=== PATIENT | male | born 1990 | race Caucasian/White ===

== ENCOUNTER 2022-06-30 10:40 | Emergency (ER) | payer OTHER ==
[~2022-06-30] VITALS: Ht 172.7 cm; Wt 109.0 kg
[2022-06-30] MEDS ORDERED: IBUPROFEN 800 MG TAB PO ONE (12:30)
[2022-06-30 12:35] VITALS: BP 123/79
[2022-06-30] MEDS ORDERED: IBUP800T27 PO (12:37)
== END 2022-06-30 12:37 | disposition home or self-care (01) ==
LOC: ER 10:40
DX: S62.352A Nondisplaced fracture of shaft of third metacarpal bone, right hand, initial encounter for closed fracture (principal); S62.350A Nondisplaced fracture of shaft of second metacarpal bone, right hand, initial encounter for closed fracture; S62.524A Nondisplaced fracture of distal phalanx of right thumb, initial encounter for closed fracture; X58.XXXA Exposure to other specified factors, initial encounter; Y93.89 Activity, other specified; Y92.89 Other specified places as the place of occurrence of the external cause; Y99.8 Other external cause status
CPT/HCPCS: 29125; 73130